=== PATIENT | male | born 1990 | race Caucasian/White ===

== ENCOUNTER 2016-11-13 20:12 | Emergency (ER) | payer MEDICAID ==
[2016-11-13] MEDS ORDERED: IPRATROPIUM/ALBUTEROL 3 ML NEB INH ONE (20:30)
[2016-11-13] MEDS ORDERED: IPRATROPIUM/ALBUTEROL 3 ML NEB INH STA (20:30)
[2016-11-13] MEDS ORDERED: methylPREDNISolone SUCCINATE 125 MG/2 ML VIAL IVP STA (20:31)
[2016-11-13] MEDS ORDERED: methylPREDNISolone SUCCINATE 125 MG/2 ML VIAL IVP ONE (20:41)
[2016-11-13] MEDS ORDERED: diazePAM INJ 5 MG/ML SYRINGE IVP STA (21:11)
[2016-11-13] MEDS ORDERED: KETOROLAC 60 MG/2 ML VIAL IVP STA (21:11)
[2016-11-13] MEDS ORDERED: KETOROLAC 30 MG/ML VIAL ONE (21:15)
[2016-11-13] MEDS ORDERED: diazePAM INJ 5 MG/ML SYRINGE ONE (21:16)
[2016-11-13] MEDS ORDERED: ALBUTEROL NEB 2.5 MG/3 ML INH STA (22:02)
[2016-11-13] MEDS ORDERED: ALBUTEROL NEB 2.5 MG/3 ML INH ONE (22:17)
== END 2016-11-13 23:35 | disposition home or self-care (01) ==
DX: J45.909 Unspecified asthma, uncomplicated (principal)
CPT/HCPCS: 36415; 71020; 80048; 85025; 94640; 96374; 96375; 99283; 99284; J7613; J7620

== ENCOUNTER 2017-04-28 02:07 | Emergency (ER) | payer MEDICAID ==
--- NOTE | 2017-04-28 02:39 | ED Physician Documentation ---
PD HPI LOWER EXT INJURY - Stated complaint Stated Complaint: L ANKLE PX - Chief complaint Chief Complaint: Trauma Ext - History obtained from History obtained from: Patient - History of Present Illness PD HPI LOW EXT INJURY LOCATION: Left, Lower leg, Ankle Type of injury: Twist (he reached down to tow picker object and had twisting/ inversion of ankle, with feeling of it breaking as he fell. Unable to bear weight due to pain.) Timing - onset: Today Timing - duration: Hours Timing - details: Abrupt onset, Still present Improved by: Rest Worsened by: Moving, Palpating Associated symptoms: Swelling. No: Weakness, Numbness Contributing factors: No: Anticoagulated, Prior ortho surgery Similar symptoms before: Has not had sx before Recently seen: Not recently seen Review of Systems Cardiac: denies: Chest pain / pressure GI: denies: Abdominal Pain, Nausea, Vomiting Skin: denies: Abrasion (s), Laceration (s) Neurologic: denies: Focal weakness, Numbness, Headache, Head injury PD PAST MEDICAL HISTORY - Past Medical History Past Medical History: Yes Cardiovascular: None Respiratory: Asthma Neuro: None Endocrine/Autoimmune: None GI: None : None HEENT: None Psych: None Musculoskeletal: None Derm: Eczema - Past Surgical History Past Surgical History: Yes - Present Medications Home Medications: Ambulatory Orders Medication Instructions Recorded Confirmed Montelukast [Singulair] 10 mg PO QPM #30 tablet 11/13/16 04/28/17 Albuterol Sulfate [Proair Hfa 2 puffs IH Q6HR PRN 04/28/17 04/28/17 Inhaler] Fluticasone Propionate [Flovent 2 puffs IH Q6HR PRN 04/28/17 04/28/17 Diskus] HYDROcod/ACETAM 5/325 [[place] 5/325] 1 tab PO Q6H PRN #15 tablet 04/28/17 Ibuprofen [Motrin] 600 mg PO TID #30 tab 04/28/17 - Allergies Allergies/Adverse Reactions: Allergies Allergy/AdvReac Type Severity Reaction Status Date / Time No Known Drug Allergies Allergy Verified 04/28/17 02:10 - Social History Does the pt smoke?: No Smoking Status: Never smoker Does the pt drink ETOH?: Yes Does the pt have substance abuse?: No - Immunizations Immunizations are current?: No - POLST Patient has POLST: No PD ED PE NORMAL - Vitals Vital signs reviewed: Yes - General General: Alert and oriented X 3, No acute distress, Well developed/nourished - HEENT HEENT: Atraumatic - Neck Neck: No bony TTP - Back Back: No spinal TTP - Derm Derm: Normal color, Warm and dry - Extremities Extremities: Other (left ankle with swelling and tenderness medially and laterally. Good color and cap refill in toes. ) - Neuro Neuro: Alert and oriented X 3, No motor deficit, No sensory deficit, Normal speech - Psych Psych: Normal mood Results - Vitals Vitals: Vital Signs - 24 hr 04/28/17 04/28/17 04/28/17 02:12 03:34 03:58 Temperature 36.0 C L Heart Rate 78 77 84 Respiratory 18 15 14 Rate Blood Pressure 105/69 124/67 101/66 O2 Saturation 96 97 97 Oxygen O2 Source Room air - Rads (name of study) ankle Radiology: Prelim report reviewed (fibular shaft fracture and medial malleolar fracture, with displacement. ) Procedures - Splint (location) left ankle Splint applied by: Physician Type of splint: Fiberglass, Posterior, Stirrup Other: Patient tolerated well, No complications, Neurovascular intact, Good alignment, Crutches provided PD MEDICAL DECISION MAKING - ED course Complexity details: reviewed results, re-evaluated patient (he says he did not want/need sedation or such for reduction. It will reduce quickly and easily, as just shifted backward. So did it with IM med and was aligned in just 1-2 seconds. Splints applied and he was more comfortable. ), considered differential , d/w patient Departure - Departure Disposition: 01 Home, Self Care Clinical Impression: Bimalleolar fracture of left ankle Qualifiers: Encounter type: initial encounter Fracture type: closed Qualified Code(s): S82.842A - Displaced bimalleolar fracture of left lower leg, initial encounter for closed fracture Condition: Stable Record reviewed to determine appropriate education?: Yes Instructions: ED Fx Ankle General Follow-Up: Kwaku Bonner MD [Provider Admit Priv/Credential] - [facility] [Provider Group] Prescriptions: Ibuprofen [Motrin] 600 mg PO TID #30 tab HYDROcod/ACETAM 5/325 [[place] 5/325] 1 tab PO Q6H PRN #15 tablet PRN Reason: Pain Comments: Ice elevate and rest the ankle often over the next several days to reduce swelling. Keep the splint on. Crutches and nonweightbearing for the ankle. Ibuprofen 2-3 times a day for pain and add Tylenol or hydrocodone if needed for pain. Call the orthopedic office on Saturday for follow-up appointment later in the week. They will reassess the position and see how the ankle is doing after the swelling is down. This likely will need surgical repair for stabilization subsequently although sometimes can be healed without and just casted alone. That would be between you and orthopedic judgment. Return if you have worsening pain or any associated swelling, discoloration, pallor, numbness through the toes and foot. Discharge Date/Time: 04/28/17 03:59
[2017-04-28] MEDS ORDERED: KETOROLAC 60 MG/2 ML VIAL IM STA (03:02)
[2017-04-28] MEDS ORDERED: HYDROmorphone 1 MG/ML CARPUJECT IM STA (03:02)
[2017-04-28] MEDS ORDERED: ONDANSETRON ODT 4 MG TABLET TL STA (03:02)
[2017-04-28] MEDS ORDERED: KETOROLAC 60 MG/2 ML VIAL ONE (03:09)
[2017-04-28] MEDS ORDERED: ONDANSETRON ODT 4 MG TABLET ONE (03:09)
[2017-04-28] MEDS ORDERED: HYDROmorphone 1 MG/ML CARPUJECT ONE (03:09)
--- NOTE | 2017-04-28 03:09 | XRAY Preliminary Report ---
Exam: XR Ankle 3 View LT IMPRESSION: Unstable left ankle fracture-subluxation as above. [facility] SITE ID: [id number]
[2017-04-28] MEDS ORDERED: HYDROcod/ACET 5/325 Prepack 6 PO ONE ×2 (03:12→03:20)
--- NOTE | 2017-04-28 03:33 | XRAY Report ---
EXAM: LEFT ANKLE RADIOGRAPHY EXAM DATE: 04/28/2017 02:35 AM. CLINICAL HISTORY: Injury to left ankle, heard ankle snap. COMPARISON: None. TECHNIQUE: 3 views. FINDINGS: Bones: Transverse fracture through the medial malleolus with moderate lateral displacement of the dis michael fracture fragment. Oblique mildly comminuted fracture of the distal fibular diaphysis above the level of the syndesmosis . Major distal fracture fragment is displaced 6 mm laterally and 6 mm anteriorly. Displaced posterior most fracture. Joints: Talus is subluxed laterally and posteriorly relative to the distal tibia. Soft Tissues: Swelling. IMPRESSION: Unstable left ankle fracture-subluxation as above. [facility] Referring Provider Line: [phone] SITE ID: [id number]
[2017-04-28 03:59] VITALS: BP 101/66
== END 2017-04-28 03:59 | disposition home or self-care (01) ==
LOC: ED 02:07
DX: S82.842A Displaced bimalleolar fracture of left lower leg, initial encounter for closed fracture (principal); S82.432A Displaced oblique fracture of shaft of left fibula, initial encounter for closed fracture; X50.1XXA Overexertion from prolonged static or awkward postures, initial encounter; W18.39XA Other fall on same level, initial encounter; J45.909 Unspecified asthma, uncomplicated
CPT/HCPCS: 27762; 73610; 96372; 99284; J1170; Q0162

== ENCOUNTER 2017-05-13 05:57 | Observation (INO) | payer MEDICAID ==
[2017-05-13] MEDS ORDERED: ceFAZolin 2 GM/50 ML 2 GM/50 ML BAG IV ONE (06:33)
[2017-05-13] MEDS ORDERED: LACTATED RINGERS 1,000 ML IV ONE ×3 (06:55→12:30)
[2017-05-13] MEDS ORDERED: HYDROmorphone 1 MG/ML AMP IVP ONE ×2 (09:00)
[2017-05-13] MEDS ORDERED: MIDAZOLAM 2 MG/2 ML VIAL IVP ONE (09:00)
[2017-05-13] MEDS ORDERED: DEXAMETHASONE 10 MG/ML VIAL IVP ONE (09:00)
[2017-05-13] MEDS ORDERED: ONDANSETRON 4 MG/2 ML VIAL IVP ONE (09:00)
[2017-05-13] MEDS ORDERED: fentaNYL 100 MCG/2 ML VIAL IVP ONE (09:00)
[2017-05-13] MEDS ORDERED: ROCURONIUM 50 MG/5 ML VIAL IVP ONE (09:00)
[2017-05-13] MEDS ORDERED: PROPOFOL 200 MG/20 ML VIAL IVP ONE (09:00)
[2017-05-13] MEDS ORDERED: KETAMINE 500 MG/10 ML VIAL IVP ONE (09:00)
[2017-05-13] MEDS ORDERED: METOCLOPRAMIDE 10 MG/2 ML VIAL IVP ONE (09:00)
[2017-05-13] MEDS ORDERED: ALBUTEROL 6.7 GM INHALER INH ONE (09:00)
[2017-05-13] MEDS ORDERED: LIDOCAINE-PF 4% 5 ML AMP SUBQ ONE (09:00)
[2017-05-13] MEDS ORDERED: BUPIVACAINE 0.5% PF 30 ML VIAL INFIL ONE ×2 (09:04→10:31)
--- NOTE | 2017-05-13 10:37 | XRAY Report ---
TWO VIEW INTRAOPERATIVE LEFT ANKLE: 05/13/2017 CLINICAL INDICATION: Fracture fixation. FINDINGS: AP, lateral intraoperative images of the left ankle were obtained. There is screw fixation of the medial malleolus and the syndesmosis. Alignment of the posterior malleolar fracture appears i mproved from 04/28/2017. The fibular shaft fracture is poorly visualized on intraoperative images. IMPRESSION: INTRAOPERATIVE IMAGING OF LEFT ANKLE FRACTURE FIXATION. 18 SECONDS OF FLUOROSCOPY TIME WAS PROVIDED TO DR. LOPEZ; 4 SPOT IMAGES OBTAINED. JOB #: [id number] EXT JOB #:[id number]
[2017-05-13] MEDS ORDERED: IPRATROPIUM 0.2 MG/ML NEB INH ONE (11:01)
[2017-05-13] MEDS ORDERED: ALBUTEROL NEB 2.5 MG/3 ML INH ONE (11:02)
[2017-05-13] MEDS: HYDROmorphone 1 MG/ML AMP ONE ×2 (11:35→11:45)
--- NOTE | 2017-05-13 12:00 | OPERATIVE REPORT ---
DATE OF SURGERY: 05/13/2017 00:00:00 PREOPERATIVE DIAGNOSIS: Left ankle bimalleolar fracture. POSTOPERATIVE DIAGNOSIS: Left ankle trimalleolar fracture. PROCEDURE: Open reduction internal fixation of left ankle fracture. SURGEON: Anatoly Thapa MD. ASSISTANTS: None. ANESTHESIA: General endotracheal. FINDINGS: Trimalleolar fracture of the left ankle detected after reduction on final radiographs and n ot visible on original radiographs. COMPLICATIONS: None. TOURNIQUET: Left thigh at 275 mmHg x101 minutes without complications. ESTIMATED BLOOD LOSS: Minimal. SPECIMEN REMOVED AND CULTURES: None. CONDITION AT END OF PROCEDURE: Stable. DISPOSITION: PACU, then home. INDICATIONS: This is a 27-year-old male who reportedly had a twisting and falling injury when he stoo d up from a couch near a coffee table and tried to get out from behind the coffee table. He twisted h is ankle, felt an immediate pop, and had unbearable pain. He was brought to the hospital by EMS, wher e radiographs revealed a bimalleolar left ankle fracture dislocation. He was reduced and splinted and referred to Orthopedic Surgery. On his initial evaluation to orthopedic surgery approximately 2 week s ago, he was noted to be so dramatically swollen with fracture blistering, that we elected to send h im home with a splint with strict instructions for ice and elevation. He was brought back in 1 week a nd still noted to be dramatically swollen. Fracture blisters at that time had burst and were beginnin g to dry out. We delayed for another week and brought back for a second swelling check, at which time we noted that the swelling had decreased significantly. We scheduled him for surgery on today's date for open redu ction internal fixation of a left ankle fracture. PROCEDURE IN DETAIL: After consent and identification, the patient was brought to the operating room and placed in a supine position on the operating table. After induction of a general endotracheal ane sthesia and appropriate monitoring, the left lower extremity was placed on a bone foam bump. Padded t ourniquet was placed to the proximal thigh. The left lower extremity was then prepped and draped free in the usual sterile fashion for ankle surgery. After an appropriate timeout was conducted, the leg was exsanguinated with an Esmarch bandage. Tourni quet was deflated to 275 mmHg. We began by making a curvilinear medial incision over the medial malleolus to expose the medial malle olar fragment. We cleaned out the fracture site of fibrinous material with a rongeur, curet, 15 blade scalpel down to and including bone. We attempted reduction at that point with a tenaculum forceps, b ut were unable to hold the medial malleolus in a reduced position. We therefore opened the lateral si de through an 8 cm long incision over the fibula and with some difficulty using the periosteal elevat or, we were able to mobilize the fibula enough to effect a reduction. We placed a tenaculum forceps a cross the fibula and the tibia to hold the mortise in a reduced position. This was not successful in completely reducing the mortise. We therefore elected to place a syndesmosis screw in a lag fashion w ith a washer to close the mortise slightly more. This was affected with a 2.5 mm and 3.5 mm drill to the lateral fibula. With the screw in position, we observed a good reduction of the mortise. We place d a second syndesmosis screw using standard technique on a noncompression position. This reduced the mortise to the point that we were able to get an effective reduction of the medial malleolus with the tenaculum forceps. With the tenaculum forceps in place, we drilled 2 holes with a 2.5 mm drill bit i n the medial malleolar fragment. Fluoroscopy was used to verify anatomic reduction. We then placed 2 each 3.5 mm cortical screws, one of 44 mm and the other a 38 mm length. This gave an anatomic reducti on to the medial malleolar fragment. The tenaculum forceps was reduced and we got final films verifyi ng an anatomic reduction. Both wounds were thoroughly irrigated and closed with running interlocked 2 -0 PDS to the fascial layers on both the medial and lateral ankle. We then placed interrupted vertica l mattress 2-0 PDS sutures because of the swelling that was still present in the ankle. Sterile Mepil ex AG dressings were then placed over both wounds after we first infiltrated the wound with 20 mL of 0.5% Marcaine without epinephrine. On completion of the procedure, the tourniquet was deflated. The lower extremity was wrapped with an Juan bandage and placed in a Cam walking boot. The patient [facility] having tolerated the procedure well. JOB #: [id number] EXT JOB #:[id number]
[2017-05-13] MEDS ORDERED: fentaNYL 100 MCG/2 ML VIAL ONE (12:14)
[2017-05-13] MEDS ORDERED: ONDANSETRON 4 MG/2 ML VIAL ONE (13:04)
[2017-05-13] MEDS ORDERED: HYDROCORTISONE SUCCINATE 100 MG/2 ML VIAL ONE (13:57)
[2017-05-13] MEDS ORDERED: IPRATROPIUM/ALBUTEROL 3 ML NEB INH ONE (14:03)
[2017-05-13] MEDS ORDERED: ACETAMINOPHEN 1,000 MG/100 ML 100 ML IV ONE ×2 (14:16→16:03)
[2017-05-13] MEDS ORDERED: FUROSEMIDE 40 MG/4 ML VIAL ONE (14:24)
[2017-05-13] MEDS ORDERED: SODIUM CHLORIDE FLUSH 0.9% 10 ML SYRINGE IVP ONE (14:25)
[2017-05-13 15:20] LABS: ABG HCO3 22.2 mmol/L (22.0-26.0); ABG PCO2 37 mmHg (34-45); ABG ROOM AIR YES; ABG SATURATION PULSE OXIMETRY% 85 %; ABG SITE OF DRAW LEFT RADIAL; ABG TCO2 23.4 MMOL/L (21.0-29.0); ALLEN TEST POSITIVE
[2017-05-13 15:22] LABS: ABG OXYGEN SATURATION 85 % (94-98); ABG PO2 47 mmHg (80-100)
--- NOTE | 2017-05-13 16:36 | XRAY Report ---
FRONTAL CHEST: 05/13/2017 CLINICAL INDICATION: Postop low O2 sat. FINDINGS: Frontal view of the chest is compared to previous film of 11/13/2016. The cardiac silhouette is within normal limits. There is patchy left-sided infiltrate. No effusion or pneumothorax is present. IMPRESSION: PATCHY LEFT LUNG INFILTRATES. JOB #: [id number] EXT JOB #:[id number]
[2017-05-13] MEDS ORDERED: KETOROLAC 15 MG/ML VIAL IVP PRN (17:57)
[2017-05-13] MEDS: KETOROLAC 30 MG/ML VIAL IVP PRN (18:58)
[2017-05-13] MEDS: SODIUM CHLORIDE FLUSH 0.9% 10 ML SYRINGE IVP SCH (18:58)
[2017-05-13] MEDS: SODIUM CHLORIDE FLUSH 0.9% 10 ML SYRINGE IVP PRN (18:58)
--- NOTE | 2017-05-13 19:21 | HISTORY & PHYSICAL EXAMINATION ---
DATE OF ADMISSION: 05/13/2017 PRIMARY CARE PHYSICIAN: No PCP : Walk in clinic [facility]. He does not have a diesel technology instructor. HISTORY OF PRESENT ILLNESS: The patient is being admitted at the request of Dr. Thapa after he had surgical repair of a trimalleolar ankle fracture today and was persistently hypoxic after surgery. The patient is a 27-year-old male who had an unusual twisting injury approximately late April with a trimalleolar fracture on the Left. This was repaired today by Dr. Thapa. He was initially offered spinal anesthesia by the nurse occupational therapy aide, and he declined this and opted for general anesthesia, despite his asthma. He denies regular need for his bronchodilator ("maybe a few times per month"), does not use his pulmicort regularly. Perioperatively, he took 4 puffs of his ProAir/ albuterol MDI per instruction by the nurse occupational therapy aide. The POULTRY PINNER noted that after intubation, his oxygen saturations were not quite what she would have expected them to be on 50% FIO2. They remained in the 94% to 95% range. At one point, she pulled back the ET tube, thinking that might help and resulted in very little improvement. She also gave him dexamethasone 4 mg x2 during the course of surgery. He was mostly on pressure control during surgery at 640-680 tidal volumes. Once he was more awake shortly before extubation, he was pulling in a 900 tidal volume. However, once he was extubated, they needed to put on a facemask, which was at approximately 11:00 a.m. Any time they would take him off the oxygen, he would desat into the 80s. They also did an ABG at approximately 2:00 p.m. The respiratory therapist evidently at this time also said "he doesn't both good." His pH was 7.4, pCO2 37, and pO2 47, and that was with an oxygen saturation of 85%. They did not think that this was a venous gas. He was on BiPAP for approximately an hour this afternoon and still desatted when it was removed.and then on 4 liters nasal cannula since he was still dipping down below the 90s on room air when he would drift off to sleep, still due to some post anesthesia efect. Dr. Thapa requested the patient be admitted to observation overnight. A chest x-ray done postop was read as having patchy left lung infiltrates. He had had 1500 mL colloid during surgery. Following a dose of IV Lasix with at least 1100 mL output, which also did not change the picture. Regarding his asthma history, he was intubated approximately 2 years ago for a severe exacerbation. 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 He was last on any sort of corticosteroid for this flare a year ago. He does have a ProAir inhaler that he uses for p.r.n. use, and he says he had probably used it once in the last month. He does have Flovent and is aware that is for prevention; however, he does not use that regularly. He does not wake up short of breath. He does not need his bronchodilator midday. He has not missed any work because of it, and he does not see a diesel technology instructor. PAST MEDICAL HISTORY: Notable only for asthma with the intubation 2 years ago and the exacerbation a year ago as noted. ALLERGIES: NO KNOWN DRUG ALLERGIES. SOCIAL HISTORY: He does not smoke. He does have occasional social alcohol. 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 He denies that the paint fumes usually bother him at all. His mother is with him. She is healthy. His biological father in an accident. He has 4 other siblings, the youngest of whom also has asthma. REVIEW OF SYSTEMS: CONSTITUTIONAL: No unintentional weight loss or weight gain. No fevers, night sweats, or lymphadenopathy. HEAD, EYES, EARS, NOSE AND THROAT: No vision changes. No trouble chewing or swallowing. CARDIOVASCULAR: No chest pain or palpitations. No edema. No near-syncope. RESPIRATORY: As per the HPI. GASTROINTESTINAL: No nausea, vomiting, diarrhea, or constipation, although he would like some food, since he has been n.p.o. most of the day. GENITOURINARY: No problems urinating. MUSCULOSKELETAL: Traumatic ankle fracture as per the HPI, with no other falls. SKIN: Denies any rashes. ENDOCRINE: Denies any polyuria, polyphagia, or any polydipsia. PHYSICAL EXAMINATION: GENERAL: He is a robust-appearing young man , sitting up on a stretcher in the PACU. He was alert and awake when I got to the PACU with oxygen flowing at 3 liters nasal cannula. His mother and sister are at bedside. He is alert, oriented, and appropriate. No longer on the BiPAP when I see him. He indicates that for approximately the past half hour, he has felt as though he is staying more awake. His BMI is not noted in the computer, but he is a relatively heavy- set young man, likely with a BMI just over 25. CHEST: Clear to auscultation. I do not any wheezes. No adventitious sounds, and he is definitely moving air on exhalation. An incentive spirometer was brought to him, and he demonstrates a slow efficient breath and is able to move the valve all the way to the top of the inhalation chamber. With the AR turned off on the oxygen, he is actually able to maintain an oxygen in the mid 90s now. Only after time does he drift down to 93 or 94. NECK: Full. HEART: Regular S1, S2, with no appreciable extra sounds. ABDOMEN: Modestly obese, soft, and nontender, with positive bowel sounds. EXTREMITIES: Warm and dry. Lower extremities notable for a Cam walker on his left foot. He is not having pain at that operated foot currently. No edema Right lower extremity. ASSESSMENT AND PLAN: 1. Postoperative hypoxia. It has taken much of the day for him to recover postop. Initially, he had been extubated close to 11:00 a.m., but he is now slowly improving. I suspect this is primarily due to the effect of anesthesia and the recumbent position during surgery in a young man with a relatively large habitus/generous abdomen and being hypoventilatory especially in that position. There is no wheezing, and I do not suggest there is any sort o f an asthma exacerbation going on at that time. He has received generous corticosteroid 4 mg of Decadron x 2, and received hydrocortisone 100 mg x2. No need for further corticosteroid/ no indication for Prednisone taper on discharge. He has a suggestion of an infiltrate on his chest x-ray, but at this point with no intervention, he is moving air very well. I hear no adventitious sounds. There is no wheezing, and I suspect he primarily needs to use the incentive spirometer very aggressively overnight. We will have him use it 10 times every hour until bedtime, which gives him approximately 4 hours worth of using it and again in the morning. He should be assessed by Respiratory Therapy in the morning on room air to ensure that he has no further oxygen requirement. I do not anticipate this. On exam, he does not appear to need any further diuresis. I am not going to put in for a CBC, as I suspect the white count will be quite high tomorrow after 8 mg of Decadron and 200 mg of hydrocortisone, as well as an operative procedure. I would only repeat the chest x-ray tomorrow if he continues to have recurrent hypoxia, but again he is already much improved at the time of this dictation and exam around 6:00 p.m. in the evening. 2. Asthma. He does not have a diesel technology instructor, and he does not know if he has delineation of a certain level of asthma severity. I suggest it is mild, intermittent. He does have the ProAir available, but since he was prescribed the Flovent previously and had intubation 2 years ago, it is recommended that he should use his Flovent inhalation twice daily. 3. Post left ankle trimalleolar repair. He would have been discharged home from the PACU this afternoon if he was not hypoventilatory and hypoxic. Dr. Thapa was only intending to send him home with p.r.n. Tylenol. Over the course of the day, he has already received 3 grams of Tylenol today and has gotten 1 dose of Toradol in the PACU. Overnight, he can have p.r.n. Toradol 15 mg every 6 hours for mild to moderate pain and could have 30 mg if it is moderate to severe pain. If he has severe pain, he could get a dose of oxycodone. I am not going to add that to his p.r.n. meds. I would prefer not to give him an opiate if he should be hypoventilatory and also since Dr. Thapa would not normally give that. If he has severe pain, the RN can speak with the cross-covering physician about a possible low dose of oxycodone. Paperwork from Dr. Thapa (originally to the PACU) for discharge is in the chart. 4. Venous thromboembolism prophylaxis is none, since he just had surgery and he was going to be ambulatory, nonweightbearing on the right, once he got home. 5. The code status is clearly full on this 27-year-old young man. I expect likely discharge relatively early tomorrow. JOB #: [id number] EXT JOB #:[id number]
[2017-05-13] MEDS ORDERED: PATIENT OWN MED PO SCH (20:00)
[2017-05-14] MEDS: KETOROLAC 30 MG/ML VIAL IVP PRN ×2 (00:54→06:54)
[2017-05-14] MEDS: SODIUM CHLORIDE FLUSH 0.9% 10 ML SYRINGE IVP PRN (00:54)
[2017-05-14] MEDS: SODIUM CHLORIDE FLUSH 0.9% 10 ML SYRINGE IVP SCH (06:54)
[2017-05-14 07:45] VITALS: BP 134/82
--- NOTE | 2017-05-14 08:28 | Discharge Plan ---
Discharge Plan Disposition: 01 Home, Self Care Condition: Stable Diet: Regular Activity Restrictions: Activity as Tolerated Shower Restrictions: No Additional Instructions or Follow Up instructions: May see PCP in two weeks, follow up orthopedics surgeon as the schedule. Should symptoms return or worsen, call 911 or come to the nearest ER for help. Follow-Up Care: [facility] - Pulmonary, Outpatient Rehab - PT, Outpatient Rehab - OT No Smoking: If you smoke, Please STOP! Call for help.
--- NOTE | 2017-05-14 08:30 | DISCHARGE SUMMARY ---
Discharge Summary Admit Date: 05/13/17 Discharge Date: 05/14/17 Discharging Provider: BAIRD Condition at Discharge: Stable Discharge Disposition: 01 Home, Self Care Discharge Facility Name: home - DIAGNOSES Admission Diagnoses: 1,post-operation hypoxia 2, hx of asthma Discharge Diagnoses with Status of Each Condition: 1,post-operation hypoxia resolved. pt is room air with SO2 95%. No wheezing, SOB. No respiratory distress. 2, hx of asthma stable, continue with home meds and follow up with his PCP - HPI History of Present Illness: please refer from Ms. Khan's HPI on 05/13/17 - HOSPITAL COURSE Hospital Course: pt was admitted for post-operation hypoxia with hx of asthma. after overnight INH and RT treatment, pt is room-air with SO2 95%, without wheezing, SOB, and respiratory distress. Pt request to be discharged to home. Pt is not on blood thinner. Pt is small surgery at ankle area, pt is 27 years, and without immobility issue. Orthopedics surgeon did not put any blood thinner to pt. Pt is lower risk of DVT or blood clots from this small operation. - ALLERGIES Allergies/Adverse Reactions: Allergies Allergy/AdvReac Type Severity Reaction Status Date / Time No Known Drug Allergies Allergy Verified 05/07/17 13:33 - MEDICATIONS Home Medications: Ambulatory Orders Medication Instructions Recorded Confirmed Montelukast [Singulair] 10 mg PO QPM #30 tablet 11/13/16 05/13/17 Albuterol Sulfate [Proair Hfa 2 puffs IH Q6HR PRN 04/28/17 05/13/17 Inhaler] Fluticasone Propionate [Flovent 2 puffs IH Q6HR PRN 04/28/17 05/13/17 Diskus] - PHYSICAL EXAM AT DISCHARGE General Appearance: positive: No acute distress, Alert. negative: Lethargic Eyes Bilateral: positive: Normal inspection, PERRL, EOMI, No lid inflammation, Conjunctivae nml ENT: positive: ENT inspection nml, Pharynx nml, No signs of dehydration. negative: Purulent nasal drainage, Pharyngeal erythema, Oral lesions Neck: positive: Nml inspection, Thyroid nml, No JVD, Trachea midline. negative : Thyromegaly, Lymphadenopathy (R), Lymphadenopathy (L), Stiff neck, Carotid bruit, Swelling/bruising, Tracheal deviation Respiratory: positive: Chest non-tender, No respiratory distress, Breath sounds nml. negative: Wheezes, Rales, Rhonchi Cardiovascular: positive: Regular rate & rhythm, No murmur, No gallop. negative : Irregularly irregular, Extrasystoles, Tachycardia, Bradycardia, Systolic murmur, Diastolic murmur Peripheral Pulses: positive: 2+ Abdomen: positive: Non-tender, No organomegaly, Nml bowel sounds. negative: Tenderness, Guarding, Rebound Back: positive: Nml inspection. negative: CVA tenderness (R), CVA tenderness (L ) Skin: positive: Color nml, No rash, Warm, Dry. negative: Cyanosis, Diaphoresis , Pallor, Skin rash Extremities: positive: Non-tender, Full ROM, Nml appearance. negative: Pedal edema, Calf tenderness, Baldemar's sign/cords Neurologic/Psychiatric: positive: Oriented x3, CN's nml (2-12), Motor nml, Sensation nml, Mood/affect nml. negative: Sensory loss, Facial droop, Slurred/ abnml speech, Depressed mood/affect - FOLLOW UP Follow Up: May see PCP in two weeks, and follow up with Orthopedics in the schedule. Pt is advised, should symptoms return or worsen, call 911 or go to the nearest ER for help.
[2017-05-14] MEDS ORDERED: ALBUTEROL NEB 2.5 MG/3 ML INH PRN (08:31)
[2017-05-14] MEDS ORDERED: POLYETHYLENE GLYCOL 3350 17 GM PACKET PO SCH (09:00)
[2017-05-14] MEDS ORDERED: BUDESONIDE 0.5 MG/2 ML NEB INH SCH (19:00)
== END 2017-05-14 08:58 | disposition home or self-care (01) ==
LOC: SDS 05:57 → OBS 17:51
PROVIDERS: ADMIT Nurse Practitioner; ATTEND Nurse Practitioner Gerontology
PROC: 0SSG04Z Reposition Left Ankle Joint with Internal Fixation Device, Open Approach (ICD-10-PCS; 2017-05-13)
PROC: 0QSH04Z Reposition Left Tibia with Internal Fixation Device, Open Approach (ICD-10-PCS; principal; 2017-05-13 07:30)
DX: S82.852A Displaced trimalleolar fracture of left lower leg, initial encounter for closed fracture (principal); R09.02 Hypoxemia; J45.909 Unspecified asthma, uncomplicated; E66.9 Obesity, unspecified; Z68.36 Body mass index [BMI] 36.0-36.9, adult
CPT/HCPCS: 27822; 27829; 36600; 71010; 73600; 82803; 94640; 94660; A9270; C1713; G0378; J0131; J0690; J1170; J7120; J7613; J7620

== ENCOUNTER 2017-08-13 06:08 | Day surgery (SDC) | payer MEDICAID ==
[2017-08-13] MEDS ORDERED: ceFAZolin 2 GM/50 ML 2 GM/50 ML BAG IV ONE (06:32)
[2017-08-13] MEDS ORDERED: LACTATED RINGERS 1,000 ML IV ONE (07:00)
[2017-08-13] MEDS ORDERED: MIDAZOLAM 2 MG/2 ML VIAL IVP ONE (07:45)
[2017-08-13] MEDS ORDERED: KETOROLAC 30 MG/ML VIAL IVP ONE (07:45)
[2017-08-13] MEDS ORDERED: fentaNYL 100 MCG/2 ML VIAL IVP ONE (07:45)
[2017-08-13] MEDS ORDERED: ONDANSETRON 4 MG/2 ML VIAL IVP ONE (07:45)
[2017-08-13] MEDS ORDERED: BUPIVACAINE 0.25%-EPI 1:200000 PF 30 ML VIAL SUBQ ONE ×3 (07:54→08:18)
[2017-08-13] MEDS ORDERED: HYDROcod/ACETAM 5/325 MG TABLET ONE (09:00)
[2017-08-13 09:18] VITALS: BP 122/71
--- NOTE | 2017-08-13 11:51 | OPERATIVE REPORT ---
DATE OF SERVICE: 08/13/2017 Physician: Kwaku Bonner MD DATE OF SURGERY: 08/13/2017 PREOPERATIVE DIAGNOSIS: Left ankle retained fibular screws post-fracture. POSTOPERATIVE DIAGNOSIS: Left ankle retained fibular screws post-fracture. PROCEDURE PERFORMED: Removal of 2 screws from the left fibula. SURGEON: Kwaku Bonner MD ANESTHESIA: General by Joel. INDICATIONS FOR SURGERY: The patient is a 27-year-old male status post a complex fracture dislocation of his left ankle, treated by Dr. Thapa. He has now healed his fibula and has 2 syndesmosis screws in plac e, which required surgical removal. DESCRIPTION OF OPERATIVE PROCEDURE: The patient was taken to the operating room and given a general anesthetic. His ankle was sterilely prepped and draped in standard fashion. His lateral incision si diana were infiltrated with 0.25% Marcaine with epinephrine and 1% lidocaine plain. Under adequate anesthesia an d after timeout, patient's leg was approached through a small incision over the single screw that was palpabl e and this screw was uneventfully removed. The second screw site was then searched for and at first probin g superior and making a counter incision at the proposed site of the screw and then using C-arm to even tually localize the screw head more distal and removing the screw. The washer had dropped into the drapes b elow the ankle and this was recovered and allowed further localization. Once the screws were removed, the wou nds were irrigated. Closure was with Vicryl subcutaneous and Prolene and skin. Sterile dressings were applie d. The patient was taken to recovery room in stable condition. ESTIMATED BLOOD LOSS: Minimal. COMPLICATIONS: None. Sponge and needle counts correct. TD: 08/13/2017 12:49
== END 2017-08-13 06:09 | disposition home or self-care (01) ==
LOC: SDS 06:08
PROVIDERS: ATTEND Orthopaedic Surgery
PROC: 0QPK04Z Removal of Internal Fixation Device from Left Fibula, Open Approach (ICD-10-PCS; principal; 2017-08-13 07:30)
DX: Z47.2 Encounter for removal of internal fixation device (principal); S82.892D Other fracture of left lower leg, subsequent encounter for closed fracture with routine healing
CPT/HCPCS: 20680; A9270; J0690; J7120

== ENCOUNTER 2023-12-22 13:33 | Emergency (ER) | payer MEDICAID, OTHER ==
[2023-12-22 13:54] VITALS: BP 146/104
--- NOTE | 2023-12-22 13:54 | ED Physician Documentation ---
History of Present Illness - Stated complaint Stated Complaint: SOA - Chief complaint Chief Complaint: Resp - History obtained from History obtained from: Patient - History of Present Illness Timing: How many days ago (3) Pain level max: 0 Pain level now: 0 - Additonal information Additional information: Patient is a 33-year-old male, history of asthma who presents to the emergency department with increased wheezing today. 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 He has been using his albuterol at home without relief. No fevers. No chills. No sore throat. He states he does smoke occasionally. Review of Systems Constitutional: denies: Fever Nose: reports: Rhinorrhea / runny nose, Congestion Skin: denies: Rash Musculoskeletal: reports: Back pain (Patient states that his back feels tight from the increased work of breathing.). denies: Neck pain Neurologic: denies: Focal weakness, Numbness, Headache PD PAST MEDICAL HISTORY - Past Medical History Past Medical History: Yes Cardiovascular: None Respiratory: Asthma Endocrine/Autoimmune: None GI: None : None HEENT: None, Chronic vision loss Psych: None Musculoskeletal: None Derm: Eczema - Past Surgical History Past Surgical History: Yes Ortho: Other - Present Medications Home Medications: Ambulatory Orders Medication Instructions Recorded Confirmed Albuterol Sulfate [Proair Hfa 2 puffs IH Q6HR PRN 04/28/17 12/22/23 Inhaler] Fluticasone Propionate [Flovent 2 puffs IH Q6HR PRN 04/28/17 12/22/23 Diskus] Cetirizine HCl/Pseudoephedrine 1 tab PO BID PRN #20 tab 12/22/23 [Zyrtec-D ER 5 mg-120 mg Tablet] predniSONE [Deltasone] 10 mg PO [id number] #42 tab 12/22/23 - Allergies Allergies/Adverse Reactions: Allergies Allergy/AdvReac Type Severity Reaction Status Date / Time No Known Drug Allergies Allergy Verified 12/22/23 13:45 - Social History Does the pt smoke?: No Smoking Status: Never smoker Does the pt drink ETOH?: Yes Does the pt have substance abuse?: No - Immunizations Immunizations are current?: No - POLST Patient has POLST: No PD ED PE NORMAL - Vitals Vital signs reviewed: Yes - General General: Alert and oriented X 3, No acute distress - HEENT HEENT: Moist mucous membranes - Neck Neck: Supple, no meningeal sign - Cardiac Cardiac: RRR, Strong equal pulses - Respiratory Respiratory: No respiratory distress, Other (Wheezing bilaterally) - Abdomen Abdomen: Soft, Non tender, Non distended - Back Back: No spinal TTP - Derm Derm: Warm and dry - Extremities Extremities: No edema, No calf tenderness / cord - Neuro Neuro: Alert and oriented X 3 - Psych Psych: Normal mood, Normal affect Results - Vitals Vitals: Vital Signs - 24 hr 12/22/23 12/22/23 12/22/23 13:41 13:48 13:59 Temperature 36.6 C Heart Rate 118 H 107 H Respiratory 20 19 18 Rate Blood Pressure 146/104 H O2 Saturation 93 92 12/22/23 12/22/23 12/22/23 14:50 15:00 15:30 Temperature 36.5 C Heart Rate 97 103 H 106 H Respiratory 16 18 20 Rate Blood Pressure O2 Saturation 98 94 Oxygen O2 Source Room air PD Medical Decision Making - ED course Complexity details: re-evaluated patient, considered differential, d/w patient ED course: Patient received prednisone in the emergency department along with 2 nebulizer treatments. Patient states his breathing feels much better. No fevers. No indication of pneumonia. Will prescribe steroids and decongestants for home. He states he has albuterol at home. Recommend that he stop smoking. Recommend that he follow-up with his PCP for further care. No hypoxia. No respiratory distress. Patient counseled regarding signs and symptoms for which I believe and urgent re-evaluation would be necessary. Patient with good understanding of and agreement to plan and is comfortable going home at this time This document was made in part using voice recognition software. While efforts are made to proofread this document, sound alike and grammatical errors may occur. Departure - Departure Disposition: 01 Home, Self Care Clinical Impression: Asthma exacerbation Qualifiers: Asthma severity: unspecified severity Asthma persistence: unspecified Qualified Code(s): J45.901 - Unspecified asthma with (acute) exacerbation Condition: Good Instructions: ED Reactive Airway Disease Follow-Up: your,doctor in 1 week [Other] Prescriptions: predniSONE [Deltasone] 10 mg PO [id number] #42 tab Cetirizine HCl/Pseudoephedrine [Zyrtec-D ER 5 mg-120 mg Tablet] 1 tab PO BID PRN #20 tab PRN Reason: nasal congestion Comments: Your prescriptions were sent to [facility] in [place]. Please continue your albuterol at home along with your fluticasone. You can ask your doctor about being prescribed a DuoNeb treatment for your nebulizer machine. Take all steroids until gone. Please return if you worsen. Forms: PCP List
[2023-12-22] MEDS: IPRATROPIUM/ALBUTEROL 3 ML NEB INH STA (13:56)
[2023-12-22] MEDS: predniSONE 20 MG TABLET PO STA (14:06)
[2023-12-22] MEDS: ALBUTEROL NEB 2.5 MG/3 ML INH STA (14:49)
[2023-12-22] MEDS: ACETAMINOPHEN 325 MG TABLET PO STA (15:01)
[2023-12-22] MEDS: PSEUDOEPHEDRINE 30 MG TABLET PO STA (15:11)
[2023-12-22 15:15] VITALS: O2SAT 98
== END 2023-12-22 15:31 | disposition home or self-care (01) ==
LOC: ED 13:33
DX: J45.901 Unspecified asthma with (acute) exacerbation (principal); R09.81 Nasal congestion; J34.89 Other specified disorders of nose and nasal sinuses
CPT/HCPCS: 94640; 94664; 99284; A9270; J7512